=== PATIENT | female | born 1995 | race American Indian/Alaskan Native ===

== ENCOUNTER 2021-04-22 07:29 | Emergency (ER) | payer MEDICAID ==
[2021-04-22 07:41] VITALS: BP 145/103
[2021-04-22] MEDS ORDERED: HYDROcodone/ACETAMINOPHEN 10-325MG TAB PO ONE (08:01)
[2021-04-22] MEDS ORDERED: TETANUS,DIPH,PERTUSS(ACELL) VACCINE 0.5 ML SYRINGE IM ONE (08:01)
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
== END 2021-04-22 10:23 | disposition home or self-care (01) ==
LOC: ED 07:29
DX: S13.4XXA Sprain of ligaments of cervical spine, initial encounter (principal); S00.81XA Abrasion of other part of head, initial encounter; S50.12XA Contusion of left forearm, initial encounter; S00.03XA Contusion of scalp, initial encounter; S00.511A Abrasion of lip, initial encounter; Z98.890 Other specified postprocedural states; W22.12XA Striking against or struck by front passenger side automobile airbag, initial encounter; V89.2XXA Person injured in unspecified motor-vehicle accident, traffic, initial encounter; Y93.89 Activity, other specified; Y92.89 Other specified places as the place of occurrence of the external cause; Y99.8 Other external cause status
CPT/HCPCS: 70450; 70486; 72125; 90471; 90715